=== PATIENT | female | born 1990 | race Caucasian/White ===

== ENCOUNTER 2021-06-13 18:10 | Emergency (ER) | payer SELFPAY ==
[~2021-06-13] VITALS: Ht 162.6 cm; Wt 63.5 kg
[2021-06-13 18:19] VITALS: BP 120/70
== END 2021-06-13 21:00 | disposition left against medical advice (07) ==
LOC: ER 18:10
DX: Z53.21 Procedure and treatment not carried out due to patient leaving prior to being seen by health care provider (principal)